=== PATIENT | male | born 1945 | race Caucasian/White ===

== ENCOUNTER → 2018-02-05 | Outpatient (REF) | payer MEDICARE, BC ==
[2018-02-05 19:16] LABS: CHOLESTEROL LEVEL 147 MG/DL (<200); CHOLESTEROL RISK RATIO 5.068 (<5); FERRITIN 135 NG/ML (26-388); HDL CHOLESTEROL 29 MG/DL (>40); IRON (FE) 73 UG/DL (65-175); LDL CHOLESTEROL 50 MG/DL (<100); NON-HDL-C 118 MG/DL; PERCENT SATURATION 30.2 % (19.7-50.0); TOTAL IRON BINDING CAPACITY 242 UG/DL (250-450); TRIGLYCERIDES LEVEL 338 MG/DL (<150)
== END ==
LOC: M LAB REF 17:46
DX: N18.3 Chronic kidney disease, stage 3 (moderate) (principal); E11.22 Type 2 diabetes mellitus with diabetic chronic kidney disease
CPT/HCPCS: 83550

== ENCOUNTER → 2019-02-27 | Outpatient (REF) | payer MEDICARE, BC | LOC: M SFHCLERA 18:13 | PROVIDERS: ATTEND Nurse Practitioner Family | DX: J00 Acute nasopharyngitis [common cold] (principal) ==

== ENCOUNTER → 2020-09-21 | Outpatient (CLI) | payer MEDICARE, BC ==
[2020-09-21 14:12] LABS: FREE T4 0.89 NG/DL (0.76-1.46); VITAMIN B12 LEVEL 1180 PG/ML
[2020-09-21 14:32] LABS: FOLATE > 24.0 NG/ML
== END ==
LOC: M PLALAB 10:12
PROVIDERS: ATTEND Psychiatry & Neurology Neurology
DX: E07.9 Disorder of thyroid, unspecified (principal); E53.8 Deficiency of other specified B group vitamins

== ENCOUNTER → 2020-12-01 | Outpatient (REF) | payer MEDICARE, BC | LOC: M LAB REF 13:04 | PROVIDERS: ATTEND Nurse Practitioner Family | DX: E83.42 Hypomagnesemia (principal) ==

== ENCOUNTER → 2020-12-29 | Outpatient (CLI) | payer MEDICARE, BC | LOC: M PLALAB 14:54 | PROVIDERS: ATTEND Internal Medicine Cardiovascular Disease | DX: I49.3 Ventricular premature depolarization (principal); Z53.8 Procedure and treatment not carried out for other reasons ==

== ENCOUNTER → 2021-01-10 | Outpatient (REF) | payer MEDICARE, BC | LOC: M LAB REF 13:13 | PROVIDERS: ATTEND Internal Medicine Cardiovascular Disease | DX: I49.3 Ventricular premature depolarization (principal) ==

== ENCOUNTER → 2021-01-17 | Outpatient (CLI) | payer MEDICARE, BC | LOC: M PLALAB 08:13 | PROVIDERS: ATTEND Nurse Practitioner Family | DX: E11.65 Type 2 diabetes mellitus with hyperglycemia (principal) ==

== ENCOUNTER → 2021-03-08 | Outpatient (REF) | payer MEDICARE, BC | LOC: M LAB REF 17:11 | PROVIDERS: ATTEND Nurse Practitioner Family | DX: E83.42 Hypomagnesemia (principal) ==

== ENCOUNTER → 2021-06-14 | Outpatient (REF) | payer MEDICARE, BC | LOC: M LAB REF 16:40 | PROVIDERS: ATTEND Nurse Practitioner Family | DX: E83.42 Hypomagnesemia (principal) ==

== ENCOUNTER → 2022-08-30 | Outpatient (CLI) | payer MEDICARE, BC ==
[2022-08-30 17:26] LABS: FREE T4 0.93 NG/DL (0.89-1.76); THYROID STIMULATING HORMONE 2.624 uIU/ML (0.55-4.78)
== END ==
LOC: M WUC 11:21
PROVIDERS: ATTEND Nurse Practitioner Family
DX: R63.4 Abnormal weight loss (principal)

== ENCOUNTER 2023-01-17 10:42 | Inpatient (IN) | payer MEDICARE, BC ==
[2023-01-17] VITALS (19 sets, daily range): BP systolic 123–220; BP diastolic 58–92; TEMP 96.9–98; O2SAT 95–99
[~2023-01-17] VITALS: Ht 180.3 cm; Wt 80.0 kg
[2023-01-17 11:54] LABS: BASO # 0.1 10^3/uL (0.0-0.2); BASO % 0.5 % (0.0-1.0); EOS # 0.2 10^3/uL (0.0-0.5); HEMATOCRIT 42.5 % (42.0-52.0); LYMPH # 1.3 10^3/uL (1.5-5.0); LYMPH % 13.9 % (24.0-44.0); MEAN CORPUSCULAR HEMOGLOBIN 31.2 pg (27.0-33.0); MEAN CORPUSCULAR HGB CONC 32.9 g/dl (32.0-36.5); MEAN CORPUSCULAR VOLUME 94.7 fl (80.0-96.0); MONO # 0.7 10^3/uL (0.0-0.8); MONO % 7.6 % (2.0-8.0); NEUTROPHILS % 74.9 % (36.0-66.0); PLATELET COUNT, AUTOMATED 215 10^3/uL (150-450); RED BLOOD COUNT 4.49 10^6/uL (4.30-6.10); WHITE BLOOD COUNT 9.3 10^3/uL (4.0-10.0)
[2023-01-17 12:09] LABS: INR 0.95; PROTHROMBIN TIME 12.4 SECONDS (12.5-14.5)
[2023-01-17 12:10] LABS: PARTIAL THROMBOPLASTIN TIME 25.5 SECONDS (24.8-34.2)
[2023-01-17] MEDS ORDERED: LABETALOL 100MG/20ML VIAL As Ordered ONE (12:18)
[2023-01-17 12:21] LABS: CK-MB VALUE MASS < 1.0 NG/ML (<3.6)
[2023-01-17] MEDS: LABETALOL 100MG/20ML VIAL IV PRN ×2 (12:22→12:34)
[2023-01-17] MEDS ORDERED: TENECTEPLASE 50 MG KIT (TNKase) IVP ONE (12:25)
[2023-01-17 12:28] LABS: CPK CREATINE PHOSPHOKINASE 109 U/L (46-171); MB/CK RELATIVE INDEX 0.91 (< OR =4)
[2023-01-17] MEDS ORDERED: MED REC IN PROGRESS XX SCH (12:35)
[2023-01-17] MEDS ORDERED: niCARdipine IV 40 MG in IV 1 EA IV SCH ×2 (13:10→18:41)
[2023-01-17] MEDS ORDERED: LANTINJ4 SC (13:21)
[2023-01-17] MEDS ORDERED: PIOG1TAB36 PO (13:25)
[2023-01-17] MEDS ORDERED: GLUCOSE 4GM CHEW TABLET PO PRN (13:25)
[2023-01-17] MEDS ORDERED: ALOG12.5 PO (13:25)
[2023-01-17] MEDS ORDERED: GLUCAGON INJ 1MG VIAL SC PRN (13:25)
[2023-01-17] MEDS ORDERED: DEXTROSE 50% 50ML SYRINGE IV PRN (13:25)
[2023-01-17] MEDS ORDERED: GLIP10TA PO (13:26)
[2023-01-17] MEDS ORDERED: PANT40TA29 PO (13:27)
[2023-01-17] MEDS ORDERED: ROCA0.5C PO (13:29)
[2023-01-17] MEDS ORDERED: ATOR80TA59 PO (13:29)
[2023-01-17] MEDS ORDERED: HYDR12.55 PO (13:29)
[2023-01-17] MEDS ORDERED: [UNRECOGNIZED DRUG - CODE] IC (13:31)
[2023-01-17] MEDS ORDERED: areds PO (13:32)
[2023-01-17] MEDS ORDERED: ASPI81TA26 PO (13:33)
[2023-01-17] MEDS ORDERED: MAGNESIUM OXIDE (13:38)
[2023-01-17] MEDS ORDERED: PRES10CA2 PO (13:54)
[2023-01-17] MEDS ORDERED: MAGN400T2 PO (13:54)
[2023-01-17] MEDS ORDERED: SODIUM CHLORIDE 0.9% INJ 10 ML SYR IV ONE ×2 (14:00)
[2023-01-17] MEDS ORDERED: LABETALOL 100MG/20ML VIAL IV STA (16:35)
[2023-01-17] MEDS: INSULIN LISPRO (NovoLOG) PER UNIT SC SCH (18:00)
[2023-01-18] VITALS (20 sets, daily range): BP systolic 137–216; BP diastolic 66–106; TEMP 96.9–98.1; O2SAT 95–98
[2023-01-18 05:37] LABS: CALCIUM LEVEL 9.4 MG/DL (8.3-10.6); CREATININE FOR GFR 2.61 MG/DL (0.70-1.30); GLOMERULAR FILTRATION RATE 25.6 (>42); POTASSIUM SERUM 3.7 MMOL/L (3.5-5.1)
[2023-01-18] MEDS: INSULIN LISPRO (NovoLOG) PER UNIT SC SCH ×4 (06:00→17:11)
[2023-01-18] MEDS ORDERED: PANTOPRAZOLE 40MG TAB (PROTONIX) PO SCH (09:00)
[2023-01-18] MEDS: ATORVASTATIN 20 MG TAB PO SCH (11:03)
[2023-01-18] MEDS ORDERED: ASPIRIN 81MG ENTERIC TABLET PO SCH (14:55)
[2023-01-18] MEDS: amLODIPine 5 MG TAB PO SCH (15:45)
[2023-01-18] MEDS: CLOPIDOGREL 75 MG TAB PO SCH (15:46)
[2023-01-18] MEDS: PANTOPRAZOLE 40MG VIAL IV SCH (15:46)
[2023-01-18] MEDS: ASPIRIN 81MG CHEW TABLET PO SCH (15:46)
[2023-01-18] MEDS: oxyBUTYnin 5 MG TAB PO SCH ×2 (17:07→20:10)
[2023-01-18] MEDS ORDERED: amLODIPine 5 MG TAB PO SCH (21:00)
[2023-01-19] VITALS (9 sets, daily range): BP systolic 123–148; BP diastolic 65–96; TEMP 97.6–98.6; O2SAT 96–98
[2023-01-19] MEDS: INSULIN LISPRO (NovoLOG) PER UNIT SC SCH ×4 (00:16→17:10)
[2023-01-19 05:11] LABS: HEMATOCRIT 42.6 % (42.0-52.0); HEMOGLOBIN 14.3 g/dl (13.5-17.5); MEAN CORPUSCULAR HGB CONC 33.6 g/dl (32.0-36.5); MEAN CORPUSCULAR VOLUME 92.2 fl (80.0-96.0); PLATELET COUNT, AUTOMATED 238 10^3/uL (150-450); RED BLOOD COUNT 4.62 10^6/uL (4.30-6.10); WHITE BLOOD COUNT 14.4 10^3/uL (4.0-10.0)
[2023-01-19 05:52] LABS: CALCIUM LEVEL 9.7 MG/DL (8.3-10.6); CREATININE FOR GFR 2.66 MG/DL (0.70-1.30); MAGNESIUM LEVEL 1.7 MG/DL (1.8-2.4)
[2023-01-19] MEDS: ASPIRIN 81MG CHEW TABLET PO SCH (09:18)
[2023-01-19] MEDS: CLOPIDOGREL 75 MG TAB PO SCH (09:18)
[2023-01-19] MEDS: HEPARIN SOD (PORCINE) 5000UNITS/ML 1ML VIAL/SYRINGE SQ SCH ×2 (09:18→21:03)
[2023-01-19] MEDS: PANTOPRAZOLE 40MG VIAL IV SCH (09:18)
[2023-01-19] MEDS: oxyBUTYnin 5 MG TAB PO SCH ×2 (09:19→21:04)
[2023-01-19] MEDS: amLODIPine 5 MG TAB PO SCH (09:19)
[2023-01-19] MEDS: ATORVASTATIN 20 MG TAB PO SCH (09:19)
[2023-01-19] MEDS ORDERED: LEVEMIR (INSULIN DETEMIR) 1 UNITS/0.01ML SC SCH (13:00)
[2023-01-19] MEDS ORDERED: INSULIN LISPRO (NovoLOG) PER UNIT SC ONE (14:00)
[2023-01-20] VITALS (7 sets, daily range): BP systolic 113–154; BP diastolic 62–78; TEMP 97.7–98.8; O2SAT 94–98
[2023-01-20] MEDS: INSULIN LISPRO (NovoLOG) PER UNIT SC SCH ×5 (00:34→17:26)
[2023-01-20] MEDS ORDERED: LevoFLOXacin 750 MG TABLET PO SCH (06:00)
[2023-01-20] MEDS: amLODIPine 5 MG TAB PO SCH (09:00)
[2023-01-20] MEDS: HEPARIN SOD (PORCINE) 5000UNITS/ML 1ML VIAL/SYRINGE SQ SCH ×2 (09:01→20:40)
[2023-01-20] MEDS: PANTOPRAZOLE 40MG VIAL IV SCH (09:01)
[2023-01-20] MEDS: ASPIRIN 81MG CHEW TABLET PO SCH (09:02)
[2023-01-20] MEDS: ATORVASTATIN 20 MG TAB PO SCH (09:02)
[2023-01-20] MEDS: oxyBUTYnin 5 MG TAB PO SCH ×2 (09:02→20:40)
[2023-01-20] MEDS: CLOPIDOGREL 75 MG TAB PO SCH (09:02)
[2023-01-20 09:45] LABS: BASO # 0.1 10^3/uL (0.0-0.2); BASO % 0.6 % (0.0-1.0); EOS # 0.2 10^3/uL (0.0-0.5); EOS % 1.2 % (0.0-3.0); HEMATOCRIT 43.9 % (42.0-52.0); HEMOGLOBIN 14.5 g/dl (13.5-17.5); LYMPH # 1.9 10^3/uL (1.5-5.0); LYMPH % 14.2 % (24.0-44.0); MONO # 1.4 10^3/uL (0.0-0.8); MONO % 10.5 % (2.0-8.0); NEUTROPHILS # 9.7 10^3/uL (1.5-8.5); NEUTROPHILS % 72.6 % (36.0-66.0); PLATELET COUNT, AUTOMATED 228 10^3/uL (150-450); RED BLOOD COUNT 4.67 10^6/uL (4.30-6.10); WHITE BLOOD COUNT 13.4 10^3/uL (4.0-10.0)
[2023-01-20 09:51] LABS: ERYTHROCYTE SEDIMENTATION RATE 35 mm/hr (0-20)
[2023-01-20 10:08] LABS: C REACTIVE PROTEIN QUANTITATIV 1.3 MG/DL (<1.0)
[2023-01-20 10:09] LABS: CALCIUM LEVEL 9.6 MG/DL (8.3-10.6); CREATININE FOR GFR 2.98 MG/DL (0.70-1.30); GLOMERULAR FILTRATION RATE 21.9 (>42); POTASSIUM SERUM 3.7 MMOL/L (3.5-5.1)
[2023-01-20 10:16] LABS: PROCALCITONIN 0.24 ng/ml
[2023-01-20] MEDS ORDERED: NS 1,000 ML IV ONE (11:20)
[2023-01-20] MEDS ORDERED: NS 1,000 ML IV SCH (13:00)
[2023-01-20] MEDS ORDERED: CALCIUM GLUCONATE 1,000 MG in D5W MINI-BAG PLUS 100 ML IV ONE (13:25)
[2023-01-20 13:30] LABS: IONIZED CALCIUM 4.9 MG/DL (4.5-5.3)
[2023-01-20 14:07] LABS: MAGNESIUM LEVEL 1.8 MG/DL (1.8-2.4); POTASSIUM SERUM 3.7 MMOL/L (3.5-5.1)
[2023-01-20] MEDS ORDERED: MAG SULF 1GM/100ML (MAG RUN) 1 GM in IV 1 EA IV ONE (15:00)
[2023-01-20] MEDS ORDERED: POTASSIUM CHLORIDE 10MEQ SR TABLET PO ONE (16:00)
[2023-01-20 18:33] LABS: CALCIUM LEVEL 9.2 MG/DL (8.3-10.6); CREATININE FOR GFR 2.88 MG/DL (0.70-1.30); GLOMERULAR FILTRATION RATE 22.8 (>42); POTASSIUM SERUM 4.2 MMOL/L (3.5-5.1)
[2023-01-20] MEDS ORDERED: INSULIN LISPRO (NovoLOG) PER UNIT SC SCH (21:00)
[2023-01-20] MEDS ORDERED: LEVEMIR (INSULIN DETEMIR) 1 UNITS/0.01ML SC SCH (21:00)
[2023-01-21 00:35] LABS: CALCIUM LEVEL 9.3 MG/DL (8.3-10.6); CREATININE FOR GFR 2.8 MG/DL (0.70-1.30); GLOMERULAR FILTRATION RATE 23.6 (>42); POTASSIUM SERUM 4.1 MMOL/L (3.5-5.1)
[2023-01-21 02:00] VITALS: BP 135/73; TEMP 98.6; O2SAT 97
[2023-01-21 04:50] VITALS: BP 135/79; TEMP 98.1; O2SAT 98
[2023-01-21 06:15] LABS: HEMOGLOBIN 13.9 g/dl (13.5-17.5); MEAN CORPUSCULAR HEMOGLOBIN 30.8 pg (27.0-33.0); MEAN CORPUSCULAR HGB CONC 32.3 g/dl (32.0-36.5); MEAN CORPUSCULAR VOLUME 95.1 fl (80.0-96.0); PLATELET COUNT, AUTOMATED 215 10^3/uL (150-450); RED BLOOD COUNT 4.52 10^6/uL (4.30-6.10); WHITE BLOOD COUNT 12.1 10^3/uL (4.0-10.0)
[2023-01-21 06:41] LABS: CALCIUM LEVEL 9.4 MG/DL (8.3-10.6); CHOLESTEROL RISK RATIO 5.21 (<5); CREATININE FOR GFR 2.79 MG/DL (0.70-1.30); GLOMERULAR FILTRATION RATE 23.7 (>42); HDL CHOLESTEROL 27.4 MG/DL (>40); LDL CHOLESTEROL 77.2 MG/DL (<100); NON-HDL-C 115.6 MG/DL
[2023-01-21] MEDS ORDERED: ISOSORBIDE DIN (ISORDIL) 10MG TAB PO SCH (09:00)
[2023-01-21] MEDS ORDERED: POTASSIUM CHLORIDE 10% LIQ 20MEQ/15ML UDC PO SCH (09:00)
[2023-01-21] MEDS ORDERED: TAMSULOSIN 0.4 MG CAP PO SCH (09:00)
[2023-01-21] MEDS: PANTOPRAZOLE 40MG VIAL IV SCH (09:04)
[2023-01-21] MEDS: INSULIN LISPRO (NovoLOG) PER UNIT SC SCH ×2 (09:05)
[2023-01-21] MEDS: CLOPIDOGREL 75 MG TAB PO SCH (09:05)
[2023-01-21] MEDS: oxyBUTYnin 5 MG TAB PO SCH (09:06)
[2023-01-21] MEDS: ATORVASTATIN 20 MG TAB PO SCH (09:06)
[2023-01-21] MEDS: ASPIRIN 81MG CHEW TABLET PO SCH (09:07)
[2023-01-21] MEDS: HEPARIN SOD (PORCINE) 5000UNITS/ML 1ML VIAL/SYRINGE SQ SCH (09:09)
[2023-01-21 09:47] VITALS: BP 164/88; TEMP 97.9; O2SAT 98
[2023-01-21] MEDS ORDERED: FLOM0.4C39 PO (10:42)
[2023-01-21] MEDS ORDERED: BACI1CAP PO (10:42)
[2023-01-21] MEDS ORDERED: POTA20EL PO (10:42)
[2023-01-21] MEDS ORDERED: CLOP75TA2 PO (10:42)
[2023-01-21] MEDS ORDERED: ISOS10TA3 PO (10:42)
[2023-01-21] MEDS ORDERED: OXYB5TAB10 PO (10:42)
[2023-01-21] MEDS ORDERED: LEVO1TAB40 PO (10:42)
[2023-01-21] MEDS ORDERED: VARIBAR PUDDING 40% w/v 230ML TUBE As Ordered ONE (10:47)
[2023-01-21] MEDS ORDERED: BARIUM SULFATE 700 MG TABLET (E-Z-DISK) As Ordered ONE (10:47)
[2023-01-21] MEDS ORDERED: E-Z-PAQUE 96% w/w SUSP 176GM BTL As Ordered ONE (10:47)
[2023-01-21] MEDS ORDERED: VARIBAR NECTAR 40% w/v 240ML SUSP BTL As Ordered ONE (10:47)
== END 2023-01-21 12:32 | DRG 62 ==
LOC: M ED 10:42 → EDBD 10:42 → EDBEDREQSVC 12:29 → M ED INP 12:59 → ENRESERV 13:54 → M ICU 14:49 → M MSPAV 01-19 15:47
PROVIDERS: ADMIT Internal Medicine Pulmonary Disease; ATTEND General Practice
PROC: 3E03317 Introduction of Other Thrombolytic into Peripheral Vein, Percutaneous Approach (ICD-10-PCS; principal; 2023-01-17)
PROC: B246ZZZ Ultrasonography of Right and Left Heart (ICD-10-PCS; 2023-01-17)
DX: I63.9 Cerebral infarction, unspecified (principal); N18.4 Chronic kidney disease, stage 4 (severe); I16.1 Hypertensive emergency; G81.91 Hemiplegia, unspecified affecting right dominant side; I50.32 Chronic diastolic (congestive) heart failure; I13.0 Hypertensive heart and chronic kidney disease with heart failure and stage 1 through stage 4 chronic kidney disease, or unspecified chronic kidney disease; R00.8 Other abnormalities of heart beat; E11.22 Type 2 diabetes mellitus with diabetic chronic kidney disease; R33.9 Retention of urine, unspecified; E78.5 Hyperlipidemia, unspecified; K21.9 Gastro-esophageal reflux disease without esophagitis; R13.12 Dysphagia, oropharyngeal phase; R29.810 Facial weakness; Z88.0 Allergy status to penicillin; Z79.4 Long term (current) use of insulin; Z79.899 Other long term (current) drug therapy; Z90.49 Acquired absence of other specified parts of digestive tract

== ENCOUNTER 2023-01-21 11:15 | Inpatient (IN) | payer MEDICARE, BC ==
[~2023-01-21] VITALS: Ht 180.3 cm; Wt 78.5 kg
[~2023-01-21 11:15] MED LIST: ALOG12.5 PO; ASPI81TA26 PO; ATOR80TA59 PO; BACI1CAP PO; CLOP75TA2 PO; FLOM0.4C39 PO; GLIP10TA PO; HYDR12.55 PO; ISOS10TA3 PO; LANTINJ4 SC; LEVO1TAB40 PO; MAGN400T2 PO; MAGNESIUM OXIDE; OXYB5TAB11 PO; PANT40TA29 PO; PIOG1TAB36 PO; POTA20EL PO; PRES10CA2 PO; ROCA0.5C PO; [UNRECOGNIZED DRUG - CODE] IC; areds PO
[2023-01-21] MEDS ORDERED: ACETAMINOPHEN 650MG SUPP PR PRN (11:55)
[2023-01-21] MEDS ORDERED: ONDANSETRON 4MG TAB PO PRN (11:55)
[2023-01-21] MEDS ORDERED: MULTIVITAMINS/MINERALS THERAP 1 TAB PO ONE (12:00)
[2023-01-21] MEDS ORDERED: GLUCOSE 4GM CHEW TABLET PO PRN (12:00)
[2023-01-21] MEDS: INSULIN LISPRO (NovoLOG) PER UNIT SC SCH ×3 (12:00→21:02)
[2023-01-21] MEDS ORDERED: GLUCAGON INJ 1MG VIAL SC PRN (12:00)
[2023-01-21] MEDS ORDERED: DEXTROSE 50% 50ML SYRINGE IV PRN (12:00)
[2023-01-21 12:50] VITALS: BP 172/80; TEMP 97.8; O2SAT 98
[2023-01-21 14:00] VITALS: BP 129/79; TEMP 97.2; O2SAT 97
[2023-01-21] MEDS ORDERED: BACLOFEN 5MG PER 1/2 TABLET GT PRN (15:45)
[2023-01-21 20:00] VITALS: BP 159/72; TEMP 97.8; O2SAT 98
[2023-01-21] MEDS ORDERED: oxyBUTYnin 5 MG TAB PO SCH (21:00)
[2023-01-21] MEDS: LEVEMIR (INSULIN DETEMIR) 1 UNITS/0.01ML SC SCH (21:02)
[2023-01-21] MEDS: SENNA 8.6 MG TAB (SENOKOT) PO SCH (21:03)
[2023-01-21] MEDS: HEPARIN SOD (PORCINE) 5000UNITS/ML 1ML VIAL/SYRINGE SC SCH (21:03)
[2023-01-21] MEDS: POTASSIUM CHLORIDE 10% LIQ 20MEQ/15ML UDC PO SCH (21:03)
[2023-01-21] MEDS: ISOSORBIDE DIN (ISORDIL) 10MG TAB PO SCH (21:04)
[2023-01-22 05:09] VITALS: BP_SYST 140; BP_SYST 168; BP_DIAS 72; BP_DIAS 80; TEMP 97.2; O2SAT 97
[2023-01-22] MEDS: LIDOCAINE 2% 5ML JELLY UROJET TOP PRN (06:26)
[2023-01-22 07:03] LABS: BASO # 0.1 10^3/uL (0.0-0.2); BASO % 0.6 % (0.0-1.0); EOS # 0.2 10^3/uL (0.0-0.5); EOS % 1.8 % (0.0-3.0); HEMOGLOBIN 13.3 g/dl (13.5-17.5); LYMPH # 1.5 10^3/uL (1.5-5.0); LYMPH % 14.1 % (24.0-44.0); MEAN CORPUSCULAR HEMOGLOBIN 30.6 pg (27.0-33.0); MEAN CORPUSCULAR HGB CONC 31.7 g/dl (32.0-36.5); MEAN CORPUSCULAR VOLUME 96.6 fl (80.0-96.0); MONO # 0.9 10^3/uL (0.0-0.8); MONO % 8.5 % (2.0-8.0); NEUTROPHILS # 7.6 10^3/uL (1.5-8.5); NEUTROPHILS % 73.7 % (36.0-66.0); PLATELET COUNT, AUTOMATED 200 10^3/uL (150-450); RED BLOOD COUNT 4.35 10^6/uL (4.30-6.10); WHITE BLOOD COUNT 10.3 10^3/uL (4.0-10.0)
[2023-01-22 07:32] LABS: CALCIUM LEVEL 9.3 MG/DL (8.3-10.6); CREATININE FOR GFR 2.72 MG/DL (0.70-1.30); GLOMERULAR FILTRATION RATE 24.4 (>42); POTASSIUM SERUM 4.7 MMOL/L (3.5-5.1)
[2023-01-22] MEDS ORDERED: TAMSULOSIN 0.4 MG CAP PO SCH (09:00)
[2023-01-22] MEDS: LACTOBACILLUS ACIDOPHILUS CAP (BACID) PO SCH (09:34)
[2023-01-22] MEDS: ASPIRIN 81MG ENTERIC TABLET PO SCH (09:34)
[2023-01-22] MEDS: ATORVASTATIN 20 MG TAB PO SCH (09:34)
[2023-01-22] MEDS: CLOPIDOGREL 75 MG TAB PO SCH (09:34)
[2023-01-22] MEDS: POTASSIUM CHLORIDE 10% LIQ 20MEQ/15ML UDC PO SCH ×2 (09:34→22:11)
[2023-01-22] MEDS: PANTOPRAZOLE 40MG TAB (PROTONIX) PO SCH (09:34)
[2023-01-22] MEDS: MAGNESIUM OXIDE 400MG TAB (MAG-OX) PO SCH (09:35)
[2023-01-22] MEDS: LevoFLOXacin 750 MG TABLET PO SCH (09:35)
[2023-01-22] MEDS: ISOSORBIDE DIN (ISORDIL) 10MG TAB PO SCH ×2 (09:35→22:10)
[2023-01-22] MEDS: INSULIN LISPRO (NovoLOG) PER UNIT SC SCH ×4 (09:35→21:00)
[2023-01-22] MEDS: HEPARIN SOD (PORCINE) 5000UNITS/ML 1ML VIAL/SYRINGE SC SCH ×2 (09:36→22:13)
[2023-01-22 14:00] VITALS: BP 140/84; TEMP 97.4; O2SAT 99
[2023-01-22] MEDS ORDERED: TAMSULOSIN 0.4 MG CAP PO ONE (21:00)
[2023-01-22 22:05] VITALS: BP 157/77; TEMP 97.6; O2SAT 100
[2023-01-22] MEDS: SENNA 8.6 MG TAB (SENOKOT) PO SCH (22:10)
[2023-01-22] MEDS: LEVEMIR (INSULIN DETEMIR) 1 UNITS/0.01ML SC SCH (22:11)
[2023-01-23] VITALS (7 sets, daily range): BP systolic 135–187; BP diastolic 74–99; TEMP 97.2–97.6; O2SAT 98–100
[2023-01-23] MEDS: CLOPIDOGREL 75 MG TAB PO SCH (09:13)
[2023-01-23] MEDS: LACTOBACILLUS ACIDOPHILUS CAP (BACID) PO SCH (09:13)
[2023-01-23] MEDS: MAGNESIUM OXIDE 400MG TAB (MAG-OX) PO SCH (09:13)
[2023-01-23] MEDS: PANTOPRAZOLE 40MG TAB (PROTONIX) PO SCH (09:13)
[2023-01-23] MEDS: ASPIRIN 81MG ENTERIC TABLET PO SCH (09:13)
[2023-01-23] MEDS: POTASSIUM CHLORIDE 10% LIQ 20MEQ/15ML UDC PO SCH ×2 (09:13→20:59)
[2023-01-23] MEDS: ISOSORBIDE DIN (ISORDIL) 10MG TAB PO SCH (09:14)
[2023-01-23] MEDS: ATORVASTATIN 20 MG TAB PO SCH (09:14)
[2023-01-23] MEDS: HEPARIN SOD (PORCINE) 5000UNITS/ML 1ML VIAL/SYRINGE SC SCH ×2 (09:14→21:00)
[2023-01-23] MEDS: INSULIN LISPRO (NovoLOG) PER UNIT SC SCH ×5 (09:16→21:01)
[2023-01-23] MEDS ORDERED: INSULIN LISPRO (NovoLOG) PER UNIT SC SCH ×2 (12:00→21:00)
[2023-01-23] MEDS ORDERED: SODIUM CHLORIDE 0.9% 1000ML IV ONE (13:05)
[2023-01-23] MEDS: NS 1,000 ML IV SCH (14:00)
[2023-01-23 15:57] LABS: COLLAGEN EPINEPHRINE 217 SECONDS (74-162)
[2023-01-23 17:26] LABS: COLLAGEN EPINEPHRINE 96 SECONDS (74-162)
[2023-01-23] MEDS: LEVEMIR (INSULIN DETEMIR) 1 UNITS/0.01ML SC SCH (21:00)
[2023-01-23] MEDS ORDERED: TAMSULOSIN 0.4 MG CAP PO SCH (21:00)
[2023-01-23] MEDS: SENNA 8.6 MG TAB (SENOKOT) PO SCH (21:00)
[2023-01-23] MEDS ORDERED: LEVEMIR (INSULIN DETEMIR) 1 UNITS/0.01ML SC SCH (21:00)
[2023-01-24] MEDS: NS 1,000 ML IV SCH ×3 (00:49→22:10)
[2023-01-24 06:00] VITALS: BP 130/60; TEMP 97.3; O2SAT 100
[2023-01-24] MEDS ORDERED: NS 1,000 ML IV ONE (07:05)
[2023-01-24 07:29] LABS: IONIZED CALCIUM 4.9 MG/DL (4.5-5.3)
[2023-01-24] MEDS: INSULIN LISPRO (NovoLOG) PER UNIT SC SCH ×7 (07:30→22:10)
[2023-01-24 07:35] LABS: BASO # 0.1 10^3/uL (0.0-0.2); BASO % 0.7 % (0.0-1.0); EOS # 0.3 10^3/uL (0.0-0.5); EOS % 3.7 % (0.0-3.0); HEMATOCRIT 38.8 % (42.0-52.0); HEMOGLOBIN 12.6 g/dl (13.5-17.5); LYMPH # 1.4 10^3/uL (1.5-5.0); LYMPH % 15.8 % (24.0-44.0); MEAN CORPUSCULAR HEMOGLOBIN 31.1 pg (27.0-33.0); MEAN CORPUSCULAR HGB CONC 32.5 g/dl (32.0-36.5); MEAN CORPUSCULAR VOLUME 95.8 fl (80.0-96.0); MONO # 0.7 10^3/uL (0.0-0.8); MONO % 7.6 % (2.0-8.0); NEUTROPHILS # 6.1 10^3/uL (1.5-8.5); NEUTROPHILS % 70.8 % (36.0-66.0); PLATELET COUNT, AUTOMATED 209 10^3/uL (150-450); RED BLOOD COUNT 4.05 10^6/uL (4.30-6.10); WHITE BLOOD COUNT 8.7 10^3/uL (4.0-10.0)
[2023-01-24 08:01] LABS: ALBUMIN 3.2 G/DL (3.2-5.2); BILIRUBIN,TOTAL 0.4 MG/DL (0.3-1.2); CALCIUM LEVEL 9.1 MG/DL (8.3-10.6); CREATININE FOR GFR 2.45 MG/DL (0.70-1.30); GLOMERULAR FILTRATION RATE 27.5 (>42); MAGNESIUM LEVEL 1.6 MG/DL (1.8-2.4); POTASSIUM SERUM 4.9 MMOL/L (3.5-5.1); TOTAL PROTEIN 5.9 G/DL (5.7-8.2)
[2023-01-24] MEDS: CLOPIDOGREL 75 MG TAB PO SCH (08:58)
[2023-01-24] MEDS: POTASSIUM CHLORIDE 10% LIQ 20MEQ/15ML UDC PO SCH ×2 (08:58→22:08)
[2023-01-24] MEDS: LevoFLOXacin 750 MG TABLET PO SCH (08:58)
[2023-01-24] MEDS: LACTOBACILLUS ACIDOPHILUS CAP (BACID) PO SCH (08:58)
[2023-01-24] MEDS: ATORVASTATIN 20 MG TAB PO SCH (08:58)
[2023-01-24] MEDS: PANTOPRAZOLE 40MG TAB (PROTONIX) PO SCH (08:59)
[2023-01-24] MEDS: MAGNESIUM OXIDE 400MG TAB (MAG-OX) PO SCH (08:59)
[2023-01-24] MEDS: ASPIRIN 81MG ENTERIC TABLET PO SCH (08:59)
[2023-01-24] MEDS: HEPARIN SOD (PORCINE) 5000UNITS/ML 1ML VIAL/SYRINGE SC SCH ×2 (09:00→22:09)
[2023-01-24] MEDS ORDERED: LIDOCAINE 2% 5ML JELLY UROJET TOP PRN (10:25)
[2023-01-24] MEDS: BETHANECHOL 10 MG TAB PO SCH (12:44)
[2023-01-24 14:00] VITALS: BP 138/72; TEMP 98.1; O2SAT 99
[2023-01-24 19:46] VITALS: BP 148/110; TEMP 97.6; O2SAT 98
[2023-01-24 22:00] VITALS: BP 140/90
[2023-01-24] MEDS: SENNA 8.6 MG TAB (SENOKOT) PO SCH (22:08)
[2023-01-24] MEDS: LEVEMIR (INSULIN DETEMIR) 1 UNITS/0.01ML SC SCH ×2 (22:09→22:11)
[2023-01-25 05:25] VITALS: BP 125/82; TEMP 97.9; O2SAT 96
[2023-01-25] MEDS: LIDOCAINE 2% 5ML JELLY UROJET TOP PRN ×3 (05:36→21:00)
[2023-01-25] MEDS ORDERED: NS 1,000 ML IV ONE ×2 (06:00→10:30)
[2023-01-25] MEDS: INSULIN LISPRO (NovoLOG) PER UNIT SC SCH ×7 (07:30→20:13)
[2023-01-25] MEDS: POTASSIUM CHLORIDE 10% LIQ 20MEQ/15ML UDC PO SCH (09:00)
[2023-01-25] MEDS: HEPARIN SOD (PORCINE) 5000UNITS/ML 1ML VIAL/SYRINGE SC SCH ×2 (09:34→20:14)
[2023-01-25] MEDS: MAGNESIUM OXIDE 400MG TAB (MAG-OX) PO SCH (09:37)
[2023-01-25] MEDS: PANTOPRAZOLE 40MG TAB (PROTONIX) PO SCH (09:37)
[2023-01-25] MEDS: ATORVASTATIN 20 MG TAB PO SCH (09:37)
[2023-01-25] MEDS: BETHANECHOL 10 MG TAB PO SCH (09:37)
[2023-01-25] MEDS: ASPIRIN 81MG ENTERIC TABLET PO SCH (09:37)
[2023-01-25] MEDS: LACTOBACILLUS ACIDOPHILUS CAP (BACID) PO SCH (09:37)
[2023-01-25] MEDS: CLOPIDOGREL 75 MG TAB PO SCH (09:37)
[2023-01-25 11:35] VITALS: BP 140/62
[2023-01-25] MEDS: NS 1,000 ML IV SCH ×2 (12:59→16:00)
[2023-01-25 14:00] VITALS: BP 135/75; TEMP 97.5; O2SAT 98
[2023-01-25 19:52] VITALS: BP 158/92; TEMP 98.1; O2SAT 99
[2023-01-25] MEDS: LEVEMIR (INSULIN DETEMIR) 1 UNITS/0.01ML SC SCH ×2 (20:00→20:14)
[2023-01-25] MEDS: SENNA 8.6 MG TAB (SENOKOT) PO SCH (20:14)
[2023-01-26 06:00] VITALS: BP 152/76; TEMP 98.9; O2SAT 99
[2023-01-26] MEDS: INSULIN LISPRO (NovoLOG) PER UNIT SC SCH ×7 (07:30→19:39)
[2023-01-26] MEDS: PANTOPRAZOLE 40MG TAB (PROTONIX) PO SCH (08:08)
[2023-01-26] MEDS: CLOPIDOGREL 75 MG TAB PO SCH (08:08)
[2023-01-26] MEDS: ATORVASTATIN 20 MG TAB PO SCH (08:08)
[2023-01-26] MEDS: ASPIRIN 81MG ENTERIC TABLET PO SCH (08:08)
[2023-01-26] MEDS: HEPARIN SOD (PORCINE) 5000UNITS/ML 1ML VIAL/SYRINGE SC SCH ×2 (08:09→19:37)
[2023-01-26] MEDS: LACTOBACILLUS ACIDOPHILUS CAP (BACID) PO SCH (08:09)
[2023-01-26] MEDS: BETHANECHOL 10 MG TAB PO SCH (08:09)
[2023-01-26] MEDS: MAGNESIUM OXIDE 400MG TAB (MAG-OX) PO SCH (08:09)
[2023-01-26] MEDS: LevoFLOXacin 750 MG TABLET PO SCH (08:14)
[2023-01-26] MEDS: NS 1,000 ML IV SCH ×2 (08:45)
[2023-01-26 14:00] VITALS: BP 160/84; TEMP 97.6; O2SAT 99
[2023-01-26] MEDS: LEVEMIR (INSULIN DETEMIR) 1 UNITS/0.01ML SC SCH ×2 (19:38→19:39)
[2023-01-26] MEDS: SENNA 8.6 MG TAB (SENOKOT) PO SCH (19:38)
[2023-01-26 20:00] VITALS: BP 160/82; TEMP 97.5; O2SAT 99
[2023-01-27 06:00] VITALS: BP 160/66; TEMP 98.2; O2SAT 98
[2023-01-27] MEDS: INSULIN LISPRO (NovoLOG) PER UNIT SC SCH ×7 (07:30→20:46)
[2023-01-27 09:12] LABS: BASO # 0.1 10^3/uL (0.0-0.2); EOS # 0.3 10^3/uL (0.0-0.5); HEMATOCRIT 38.9 % (42.0-52.0); HEMOGLOBIN 12.9 g/dl (13.5-17.5); LYMPH # 1.3 10^3/uL (1.5-5.0); LYMPH % 12.3 % (24.0-44.0); MEAN CORPUSCULAR HEMOGLOBIN 31.9 pg (27.0-33.0); MEAN CORPUSCULAR HGB CONC 33.2 g/dl (32.0-36.5); MONO # 0.7 10^3/uL (0.0-0.8); MONO % 6.5 % (2.0-8.0); NEUTROPHILS # 7.9 10^3/uL (1.5-8.5); NEUTROPHILS % 75.1 % (36.0-66.0); PLATELET COUNT, AUTOMATED 208 10^3/uL (150-450); RED BLOOD COUNT 4.05 10^6/uL (4.30-6.10); WHITE BLOOD COUNT 10.5 10^3/uL (4.0-10.0)
[2023-01-27] MEDS: ASPIRIN 81MG ENTERIC TABLET PO SCH (09:26)
[2023-01-27] MEDS: ATORVASTATIN 20 MG TAB PO SCH (09:26)
[2023-01-27] MEDS: LACTOBACILLUS ACIDOPHILUS CAP (BACID) PO SCH (09:26)
[2023-01-27] MEDS: PANTOPRAZOLE 40MG TAB (PROTONIX) PO SCH (09:26)
[2023-01-27] MEDS: HEPARIN SOD (PORCINE) 5000UNITS/ML 1ML VIAL/SYRINGE SC SCH (09:27)
[2023-01-27] MEDS: CLOPIDOGREL 75 MG TAB PO SCH (09:27)
[2023-01-27] MEDS: BETHANECHOL 10 MG TAB PO SCH (09:27)
[2023-01-27] MEDS: MAGNESIUM OXIDE 400MG TAB (MAG-OX) PO SCH ×2 (09:27→20:47)
[2023-01-27 09:30] LABS: ERYTHROCYTE SEDIMENTATION RATE 19 mm/hr (0-20)
[2023-01-27 09:32] LABS: C REACTIVE PROTEIN QUANTITATIV 0.7 MG/DL (<1.0)
[2023-01-27 09:34] LABS: ALBUMIN 3.1 G/DL (3.2-5.2); BILIRUBIN,TOTAL 0.4 MG/DL (0.3-1.2); CALCIUM LEVEL 8.7 MG/DL (8.3-10.6); CREATININE FOR GFR 2.46 MG/DL (0.70-1.30); GLOMERULAR FILTRATION RATE 27.4 (>42); MAGNESIUM LEVEL 1.4 MG/DL (1.8-2.4); POTASSIUM SERUM 4.6 MMOL/L (3.5-5.1); TOTAL PROTEIN 5.9 G/DL (5.7-8.2)
[2023-01-27 09:39] LABS: PROCALCITONIN 0.14 ng/ml
[2023-01-27 14:00] VITALS: BP 148/82; TEMP 97.6; O2SAT 99
[2023-01-27] MEDS: LEVEMIR (INSULIN DETEMIR) 1 UNITS/0.01ML SC SCH ×2 (19:51→20:46)
[2023-01-27 20:00] VITALS: BP 160/70; TEMP 97.7; O2SAT 99
[2023-01-27] MEDS: SENNA 8.6 MG TAB (SENOKOT) PO SCH (20:46)
[2023-01-27] MEDS: TAMSULOSIN 0.4 MG CAP PO SCH (20:46)
[2023-01-27 21:00] VITALS: BP 154/66
[2023-01-28 06:00] VITALS: BP 132/70; TEMP 97.5; O2SAT 99
[2023-01-28] MEDS: INSULIN LISPRO (NovoLOG) PER UNIT SC SCH ×8 (07:28→20:32)
[2023-01-28] MEDS: ATORVASTATIN 20 MG TAB PO SCH (09:18)
[2023-01-28] MEDS: MAGNESIUM OXIDE 400MG TAB (MAG-OX) PO SCH ×2 (09:18→20:32)
[2023-01-28] MEDS: PANTOPRAZOLE 40MG TAB (PROTONIX) PO SCH (09:18)
[2023-01-28] MEDS: LACTOBACILLUS ACIDOPHILUS CAP (BACID) PO SCH (09:18)
[2023-01-28] MEDS: CLOPIDOGREL 75 MG TAB PO SCH (09:18)
[2023-01-28] MEDS: ASPIRIN 81MG ENTERIC TABLET PO SCH (09:18)
[2023-01-28 10:24] VITALS: BP 144/70; O2SAT 100
[2023-01-28 14:00] VITALS: BP 142/70; TEMP 98; O2SAT 100
[2023-01-28 20:00] VITALS: BP 160/82; TEMP 97.8; O2SAT 99
[2023-01-28] MEDS: LEVEMIR (INSULIN DETEMIR) 1 UNITS/0.01ML SC SCH (20:31)
[2023-01-28] MEDS: TAMSULOSIN 0.4 MG CAP PO SCH (20:32)
[2023-01-28] MEDS: RAMELTEON 8 MG TAB (ROZEREM) PO PRN (20:32)
[2023-01-28] MEDS: SENNA 8.6 MG TAB (SENOKOT) PO SCH (20:32)
[2023-01-29 06:00] VITALS: BP 130/74; TEMP 97.3; O2SAT 98
[2023-01-29] MEDS: INSULIN LISPRO (NovoLOG) PER UNIT SC SCH ×5 (07:30→21:12)
[2023-01-29] MEDS: ASPIRIN 81MG ENTERIC TABLET PO SCH (07:33)
[2023-01-29] MEDS: ATORVASTATIN 20 MG TAB PO SCH (07:34)
[2023-01-29] MEDS: MAGNESIUM OXIDE 400MG TAB (MAG-OX) PO SCH ×2 (07:35→21:14)
[2023-01-29] MEDS: CLOPIDOGREL 75 MG TAB PO SCH (07:35)
[2023-01-29] MEDS: PANTOPRAZOLE 40MG TAB (PROTONIX) PO SCH (07:35)
[2023-01-29] MEDS: LACTOBACILLUS ACIDOPHILUS CAP (BACID) PO SCH (07:35)
[2023-01-29] MEDS: ACETAMINOPHEN TAB 650MG DOSE (2X325MG) PO PRN (10:49)
[2023-01-29] MEDS: SITagliptin 50 MG TAB (JANUVIA) PO SCH (12:11)
[2023-01-29 14:00] VITALS: BP 118/60; TEMP 97.4; O2SAT 99
[2023-01-29 19:34] VITALS: BP 145/74; TEMP 96.2; O2SAT 100
[2023-01-29] MEDS: SENNA 8.6 MG TAB (SENOKOT) PO SCH (21:13)
[2023-01-29] MEDS: TAMSULOSIN 0.4 MG CAP PO SCH (21:13)
[2023-01-29] MEDS: LEVEMIR (INSULIN DETEMIR) 1 UNITS/0.01ML SC SCH (21:13)
[2023-01-29] MEDS: LIDOCAINE 2% 5ML JELLY UROJET TOP PRN (22:31)
[2023-01-30 06:02] VITALS: BP 120/77; TEMP 97.5; O2SAT 98
[2023-01-30] MEDS: INSULIN LISPRO (NovoLOG) PER UNIT SC SCH ×4 (07:03→20:11)
[2023-01-30] MEDS: ATORVASTATIN 20 MG TAB PO SCH (07:19)
[2023-01-30] MEDS: MAGNESIUM OXIDE 400MG TAB (MAG-OX) PO SCH ×2 (07:19→20:09)
[2023-01-30] MEDS: PANTOPRAZOLE 40MG TAB (PROTONIX) PO SCH (07:19)
[2023-01-30] MEDS: LACTOBACILLUS ACIDOPHILUS CAP (BACID) PO SCH (07:19)
[2023-01-30] MEDS: SITagliptin 50 MG TAB (JANUVIA) PO SCH (07:20)
[2023-01-30] MEDS: ASPIRIN 81MG ENTERIC TABLET PO SCH (07:20)
[2023-01-30] MEDS: CLOPIDOGREL 75 MG TAB PO SCH (07:20)
[2023-01-30 14:00] VITALS: BP 150/80; TEMP 97.6; O2SAT 100
[2023-01-30] MEDS: BETHANECHOL 10 MG TAB PO SCH (16:52)
[2023-01-30 19:39] VITALS: BP 146/90; TEMP 97.1; O2SAT 100
[2023-01-30] MEDS: SENNA 8.6 MG TAB (SENOKOT) PO SCH (20:09)
[2023-01-30] MEDS: TAMSULOSIN 0.4 MG CAP PO SCH (20:09)
[2023-01-30] MEDS: LEVEMIR (INSULIN DETEMIR) 1 UNITS/0.01ML SC SCH (20:10)
[2023-01-30] MEDS: RAMELTEON 8 MG TAB (ROZEREM) PO PRN (20:12)
[2023-01-30 21:30] VITALS: BP 136/74; TEMP 97.5; O2SAT 97
[2023-01-30] MEDS: LIDOCAINE 2% 5ML JELLY UROJET TOP PRN (21:59)
[2023-01-31 06:00] VITALS: BP 122/78; TEMP 97.5; O2SAT 95
[2023-01-31] MEDS: LIDOCAINE 2% 5ML JELLY UROJET TOP PRN ×2 (06:43→20:29)
[2023-01-31] MEDS: INSULIN LISPRO (NovoLOG) PER UNIT SC SCH ×4 (07:30→20:11)
[2023-01-31] MEDS ORDERED: PILL CUTTER 1 EACH XX PRN (07:55)
[2023-01-31] MEDS: BETHANECHOL 10 MG TAB PO SCH ×3 (09:48→20:11)
[2023-01-31] MEDS: SITagliptin 50 MG TAB (JANUVIA) PO SCH (09:49)
[2023-01-31] MEDS: CLOPIDOGREL 75 MG TAB PO SCH (09:51)
[2023-01-31] MEDS: PANTOPRAZOLE 40MG TAB (PROTONIX) PO SCH (09:52)
[2023-01-31] MEDS: ATORVASTATIN 20 MG TAB PO SCH (09:52)
[2023-01-31] MEDS: LACTOBACILLUS ACIDOPHILUS CAP (BACID) PO SCH (09:53)
[2023-01-31] MEDS: ASPIRIN 81MG ENTERIC TABLET PO SCH (09:53)
[2023-01-31] MEDS: MAGNESIUM OXIDE 400MG TAB (MAG-OX) PO SCH ×2 (09:54→20:10)
[2023-01-31] MEDS: PIOGLITAZONE 30 MG PO SCH (09:54)
[2023-01-31] MEDS ORDERED: E-Z-PAQUE 96% w/w SUSP 176GM BTL As Ordered ONE (12:15)
[2023-01-31] MEDS ORDERED: BARIUM SULFATE 700 MG TABLET (E-Z-DISK) As Ordered ONE (12:15)
[2023-01-31] MEDS ORDERED: VARIBAR NECTAR 40% w/v 240ML SUSP BTL As Ordered ONE (12:15)
[2023-01-31] MEDS ORDERED: VARIBAR PUDDING 40% w/v 230ML TUBE As Ordered ONE (12:15)
[2023-01-31 14:00] VITALS: BP 165/88; TEMP 96.8; O2SAT 100
[2023-01-31 20:00] VITALS: BP 137/81; TEMP 97.5; O2SAT 98
[2023-01-31] MEDS: TAMSULOSIN 0.4 MG CAP PO SCH (20:10)
[2023-01-31] MEDS: SENNA 8.6 MG TAB (SENOKOT) PO SCH (20:10)
[2023-01-31] MEDS: LEVEMIR (INSULIN DETEMIR) 1 UNITS/0.01ML SC SCH (20:12)
[2023-02-01] MEDS: LIDOCAINE 2% 5ML JELLY UROJET TOP PRN ×3 (05:52→21:51)
[2023-02-01 06:00] VITALS: BP 122/79; TEMP 97.6; O2SAT 98
[2023-02-01] MEDS: CLOPIDOGREL 75 MG TAB PO SCH (08:38)
[2023-02-01] MEDS: ASPIRIN 81MG ENTERIC TABLET PO SCH (08:38)
[2023-02-01] MEDS: PANTOPRAZOLE 40MG TAB (PROTONIX) PO SCH (08:38)
[2023-02-01] MEDS: LACTOBACILLUS ACIDOPHILUS CAP (BACID) PO SCH (08:38)
[2023-02-01] MEDS: SITagliptin 50 MG TAB (JANUVIA) PO SCH (08:38)
[2023-02-01] MEDS: ATORVASTATIN 20 MG TAB PO SCH (08:38)
[2023-02-01] MEDS: BETHANECHOL 10 MG TAB PO SCH ×3 (08:39→21:29)
[2023-02-01] MEDS: PIOGLITAZONE 30 MG PO SCH (08:39)
[2023-02-01] MEDS: MAGNESIUM OXIDE 400MG TAB (MAG-OX) PO SCH ×4 (08:39→21:28)
[2023-02-01] MEDS: INSULIN LISPRO (NovoLOG) PER UNIT SC SCH ×4 (08:40→21:27)
[2023-02-01] MEDS ORDERED: DOCUSATE SODIUM 100MG CAPSULE PO SCH (09:00)
[2023-02-01] MEDS: DOCUSATE SOD LIQ 100MG/10ML UDC PO SCH ×2 (09:00→21:28)
[2023-02-01] MEDS ORDERED: BISACODYL 10MG SUPP PR PRN (09:05)
[2023-02-01] MEDS ORDERED: MOM 30ML SUSPENSION UDC PO ONE (09:30)
[2023-02-01] MEDS: SENNA 8.6 MG TAB (SENOKOT) PO SCH ×2 (09:39→21:29)
[2023-02-01 14:00] VITALS: BP 161/90; TEMP 97.5; O2SAT 98
[2023-02-01 20:00] VITALS: BP 140/77; TEMP 97.8; O2SAT 97
[2023-02-01] MEDS: TAMSULOSIN 0.4 MG CAP PO SCH (21:28)
[2023-02-01] MEDS: LEVEMIR (INSULIN DETEMIR) 1 UNITS/0.01ML SC SCH (21:28)
[2023-02-02] MEDS: LIDOCAINE 2% 5ML JELLY UROJET TOP PRN ×2 (05:44→21:58)
[2023-02-02 06:00] VITALS: BP 134/87; TEMP 97.5; O2SAT 98
[2023-02-02] MEDS: LACTOBACILLUS ACIDOPHILUS CAP (BACID) PO SCH (08:33)
[2023-02-02] MEDS: ASPIRIN 81MG ENTERIC TABLET PO SCH (08:33)
[2023-02-02] MEDS: SITagliptin 50 MG TAB (JANUVIA) PO SCH (08:33)
[2023-02-02] MEDS: CLOPIDOGREL 75 MG TAB PO SCH (08:33)
[2023-02-02] MEDS: PANTOPRAZOLE 40MG TAB (PROTONIX) PO SCH (08:33)
[2023-02-02] MEDS: MAGNESIUM OXIDE 400MG TAB (MAG-OX) PO SCH ×3 (08:33→21:34)
[2023-02-02] MEDS: ATORVASTATIN 20 MG TAB PO SCH (08:33)
[2023-02-02] MEDS: DOCUSATE SOD LIQ 100MG/10ML UDC PO SCH ×2 (08:34→21:00)
[2023-02-02] MEDS: SENNA 8.6 MG TAB (SENOKOT) PO SCH ×2 (08:34→21:00)
[2023-02-02] MEDS: BETHANECHOL 10 MG TAB PO SCH ×3 (08:34→21:34)
[2023-02-02] MEDS: PIOGLITAZONE 30 MG PO SCH (08:35)
[2023-02-02] MEDS: INSULIN LISPRO (NovoLOG) PER UNIT SC SCH ×4 (08:35→21:36)
[2023-02-02 14:00] VITALS: BP 135/91; TEMP 98.4; O2SAT 97
[2023-02-02 20:00] VITALS: BP 138/90; TEMP 98.1; O2SAT 98
[2023-02-02] MEDS: TAMSULOSIN 0.4 MG CAP PO SCH (21:34)
[2023-02-02] MEDS: LEVEMIR (INSULIN DETEMIR) 1 UNITS/0.01ML SC SCH (21:36)
[2023-02-02] MEDS: ACETAMINOPHEN TAB 650MG DOSE (2X325MG) PO PRN (22:28)
[2023-02-03 06:00] VITALS: BP 120/63; TEMP 98; O2SAT 99
[2023-02-03] MEDS: ATORVASTATIN 20 MG TAB PO SCH (08:33)
[2023-02-03] MEDS: LACTOBACILLUS ACIDOPHILUS CAP (BACID) PO SCH (08:33)
[2023-02-03] MEDS: ASPIRIN 81MG ENTERIC TABLET PO SCH (08:34)
[2023-02-03] MEDS: SENNA 8.6 MG TAB (SENOKOT) PO SCH ×2 (08:37→21:00)
[2023-02-03] MEDS: BETHANECHOL 10 MG TAB PO SCH (08:37)
[2023-02-03] MEDS: DOCUSATE SOD LIQ 100MG/10ML UDC PO SCH ×2 (08:39→19:57)
[2023-02-03] MEDS: CLOPIDOGREL 75 MG TAB PO SCH (08:39)
[2023-02-03] MEDS: INSULIN LISPRO (NovoLOG) PER UNIT SC SCH ×4 (08:39→20:29)
[2023-02-03] MEDS: PANTOPRAZOLE 40MG TAB (PROTONIX) PO SCH (08:39)
[2023-02-03] MEDS: SITagliptin 50 MG TAB (JANUVIA) PO SCH (08:39)
[2023-02-03] MEDS: PIOGLITAZONE 30 MG PO SCH (08:40)
[2023-02-03] MEDS: MAGNESIUM OXIDE 400MG TAB (MAG-OX) PO SCH ×3 (08:40→20:28)
[2023-02-03] MEDS: ACETAMINOPHEN TAB 650MG DOSE (2X325MG) PO PRN (10:46)
[2023-02-03 14:00] VITALS: BP 137/79; TEMP 98.1; O2SAT 99
[2023-02-03] MEDS: LIDOCAINE 2% 5ML JELLY UROJET TOP PRN (17:48)
[2023-02-03 19:50] VITALS: BP 138/89; TEMP 98.9; O2SAT 99
[2023-02-03] MEDS: RAMELTEON 8 MG TAB (ROZEREM) PO PRN (20:28)
[2023-02-03] MEDS ORDERED: LEVEMIR (INSULIN DETEMIR) 1 UNITS/0.01ML SC SCH (21:00)
[2023-02-04 05:22] VITALS: BP 112/65; TEMP 98.2; O2SAT 98
[2023-02-04] MEDS: INSULIN LISPRO (NovoLOG) PER UNIT SC SCH ×2 (08:30→12:13)
[2023-02-04] MEDS: PIOGLITAZONE 30 MG PO SCH (08:30)
[2023-02-04] MEDS: MAGNESIUM OXIDE 400MG TAB (MAG-OX) PO SCH (08:30)
[2023-02-04] MEDS: ATORVASTATIN 20 MG TAB PO SCH (08:30)
[2023-02-04] MEDS: ASPIRIN 81MG ENTERIC TABLET PO SCH (08:31)
[2023-02-04] MEDS: LACTOBACILLUS ACIDOPHILUS CAP (BACID) PO SCH (08:31)
[2023-02-04] MEDS: PANTOPRAZOLE 40MG TAB (PROTONIX) PO SCH (08:31)
[2023-02-04] MEDS: SITagliptin 50 MG TAB (JANUVIA) PO SCH (08:31)
[2023-02-04] MEDS: CLOPIDOGREL 75 MG TAB PO SCH (08:31)
[2023-02-04] MEDS: SENNA 8.6 MG TAB (SENOKOT) PO SCH (08:31)
[2023-02-04] MEDS: DOCUSATE SOD LIQ 100MG/10ML UDC PO SCH (08:32)
[2023-02-04] MEDS ORDERED: CLOP75TA2 PO (11:08)
[2023-02-04] MEDS ORDERED: MAGN400T2 PO (11:08)
[2023-02-04] MEDS ORDERED: SITA50TAB PO (11:08)
== END 2023-02-04 12:55 | disposition home health service (06) | DRG 57 ==
LOC: M PM&R 12:40
PROVIDERS: ADMIT Student in an Organized Health Care Education/Training Program; ATTEND Student in an Organized Health Care Education/Training Program
DX: I69.351 Hemiplegia and hemiparesis following cerebral infarction affecting right dominant side (principal); N18.4 Chronic kidney disease, stage 4 (severe); I50.32 Chronic diastolic (congestive) heart failure; I13.0 Hypertensive heart and chronic kidney disease with heart failure and stage 1 through stage 4 chronic kidney disease, or unspecified chronic kidney disease; E46 Unspecified protein-calorie malnutrition; E11.22 Type 2 diabetes mellitus with diabetic chronic kidney disease; K21.9 Gastro-esophageal reflux disease without esophagitis; E11.65 Type 2 diabetes mellitus with hyperglycemia; R13.12 Dysphagia, oropharyngeal phase; I69.322 Dysarthria following cerebral infarction; I69.391 Dysphagia following cerebral infarction; G25.0 Essential tremor; R33.9 Retention of urine, unspecified; F32.A Depression, unspecified; E78.5 Hyperlipidemia, unspecified; R00.8 Other abnormalities of heart beat; Z74.09 Other reduced mobility; Z74.1 Need for assistance with personal care; Z90.49 Acquired absence of other specified parts of digestive tract; Z79.82 Long term (current) use of aspirin; Z79.4 Long term (current) use of insulin; Z79.899 Other long term (current) drug therapy; Z88.0 Allergy status to penicillin

== ENCOUNTER 2023-02-09 15:15 | Emergency (ER) | payer MEDICARE, BC ==
[~2023-02-09] VITALS: Ht 180.3 cm; Wt 77.3 kg
[~2023-02-09 15:15] MED LIST changes: +SITA50TAB PO
[2023-02-09] MEDS ORDERED: ONDANSETRON 4MG 2ML VIAL IV ONE (15:55)
[2023-02-09] MEDS ORDERED: NS 1,000 ML IV SCH (15:55)
[2023-02-09] MEDS ORDERED: MORPHINE 4 MG/ML 1ML VIAL IV ONE ×2 (15:55→20:30)
[2023-02-09 15:59] LABS: BASO # 0.1 10^3/uL (0.0-0.2); BASO % 0.3 % (0.0-1.0); EOS % 0.2 % (0.0-3.0); HEMATOCRIT 38.3 % (42.0-52.0); HEMOGLOBIN 12.8 g/dl (13.5-17.5); LYMPH # 1.5 10^3/uL (1.5-5.0); LYMPH % 7.9 % (24.0-44.0); MEAN CORPUSCULAR HEMOGLOBIN 31.3 pg (27.0-33.0); MEAN CORPUSCULAR HGB CONC 33.4 g/dl (32.0-36.5); MEAN CORPUSCULAR VOLUME 93.6 fl (80.0-96.0); MONO # 0.9 10^3/uL (0.0-0.8); MONO % 4.7 % (2.0-8.0); NEUTROPHILS # 15.9 10^3/uL (1.5-8.5); NEUTROPHILS % 85.2 % (36.0-66.0); PLATELET COUNT, AUTOMATED 324 10^3/uL (150-450); RED BLOOD COUNT 4.09 10^6/uL (4.30-6.10); WHITE BLOOD COUNT 18.7 10^3/uL (4.0-10.0)
[2023-02-09 16:12] LABS: INR 1.03; PROTHROMBIN TIME 13.2 SECONDS (12.5-14.5)
[2023-02-09 16:13] LABS: PARTIAL THROMBOPLASTIN TIME 26.6 SECONDS (24.8-34.2)
[2023-02-09 16:18] LABS: LIPASE 42 U/L (12-53)
[2023-02-09 16:19] LABS: CK-MB VALUE MASS < 1.0 NG/ML (<3.6)
[2023-02-09] MEDS ORDERED: ERTAPENEM SODIUM 1 GM in NS MINI-BAG PLUS 50 ML IV ONE (16:20)
[2023-02-09 16:21] LABS: ALBUMIN 3.2 G/DL (3.2-5.2); ALKALINE PHOSPHATASE 215 U/L (46-116); ALT/SGPT 186 U/L (7.0-40); AST/SGOT 282 U/L (<34); BILIRUBIN,TOTAL 1.4 MG/DL (0.3-1.2); BLOOD UREA NITROGEN 41 MG/DL (9-23); CALCIUM LEVEL 9.3 MG/DL (8.3-10.6); CARBON DIOXIDE LEVEL 20 MMOL/L (20-31); CHLORIDE LEVEL 105 MMOL/L (98-107); CPK CREATINE PHOSPHOKINASE 32 U/L (46-171); CREATININE FOR GFR 3.06 MG/DL (0.70-1.30); GLOMERULAR FILTRATION RATE 21.3 (>42); GLUCOSE, FASTING 261 MG/DL (74-106); MB/CK RELATIVE INDEX 3.12 (< OR =4); POTASSIUM SERUM 4.2 MMOL/L (3.5-5.1); SODIUM LEVEL 139 MMOL/L (136-145); TOTAL PROTEIN 6.8 G/DL (5.7-8.2)
[2023-02-09 16:30] LABS: RSV AMPLIFICATION NEGATIVE (NEGATIVE)
[2023-02-09] MEDS ORDERED: MOXIFLOXACIN HCL 400 MG in IV 1 EA IV ONE (16:30)
[2023-02-09] MEDS ORDERED: NESI25TA PO (17:38)
[2023-02-09] MEDS: GASTROGRAFIN SOLUTION 30ML PO SCH ×2 (18:29→19:19)
[2023-02-09] MEDS ORDERED: metroNIDAZOLE 500 MG in IV 1 EA IV ONE (23:15)
[2023-02-09] MEDS ORDERED: SODIUM CHLORIDE 0.9% 1000ML IV STA (23:37)
[2023-02-09] MEDS ORDERED: DEXTROSE 50% 50ML SYRINGE IV PRN (23:40)
[2023-02-09] MEDS ORDERED: GLUCAGON INJ 1MG VIAL SC PRN (23:40)
[2023-02-09] MEDS ORDERED: GLUCOSE 4GM CHEW TABLET PO PRN (23:40)
[2023-02-09] MEDS ORDERED: LR 1,000 ML IV SCH (23:45)
[2023-02-10] MEDS ORDERED: INSULIN LISPRO (NovoLOG) PER UNIT SC SCH
[2023-02-10] MEDS ORDERED: HYDROMORPHONE HCL 0.5 MG/ 0.5 ML SYRINGE IV PRN
[2023-02-10 00:30] VITALS: BP 156/77
[2023-02-10 00:45] VITALS: TEMP 98.2
[2023-02-10 00:46] VITALS: O2SAT 95
[2023-02-10] MEDS ORDERED: AZTREONAM 2 GM in D5W MINI-BAG PLUS 50 ML IV SCH (01:00)
[2023-02-10] MEDS ORDERED: metroNIDAZOLE 500 MG in IV 1 EA IV SCH (08:00)
== END 2023-02-10 00:54 | disposition short-term general hospital (02) ==
LOC: M ED 15:15 → EDBD 15:15 → M ED 02-10 00:54
DX: A41.9 Sepsis, unspecified organism (principal); N17.9 Acute kidney failure, unspecified; K83.09 Other cholangitis; K80.80 Other cholelithiasis without obstruction; K59.00 Constipation, unspecified; R93.421 Abnormal radiologic findings on diagnostic imaging of right kidney; I12.9 Hypertensive chronic kidney disease with stage 1 through stage 4 chronic kidney disease, or unspecified chronic kidney disease; E11.9 Type 2 diabetes mellitus without complications; K21.9 Gastro-esophageal reflux disease without esophagitis; K57.92 Diverticulitis of intestine, part unspecified, without perforation or abscess without bleeding; E78.5 Hyperlipidemia, unspecified; Z79.4 Long term (current) use of insulin; Z79.82 Long term (current) use of aspirin; Z79.899 Other long term (current) drug therapy; Z88.0 Allergy status to penicillin
CPT/HCPCS: 36415; 51702; 70450; 74176; 80047; 80048; 80076; 81001; 82550; 82553; 83605; 83690; 84484; 85025; 85610; 85730; 86850; 86870; 86900; 86901; 87040; 87088; 87186; 87631; 93005; 93041; 96361; 96365; 96366; 96367; 96375; 96376; 99285; J1170; J1815; J1836; J2280; J2405; Q9963

== ENCOUNTER 2023-02-25 15:24 | Emergency (ER) | payer MEDICARE, BC ==
[~2023-02-25] VITALS: Ht 180.3 cm; Wt 67.7 kg
[~2023-02-25 15:24] MED LIST changes: +NESI25TA PO
[2023-02-25 15:26] VITALS: BP 128/84; TEMP 98.2; O2SAT 98
== END 2023-02-25 17:35 | disposition left against medical advice (07) ==
LOC: M ED 15:24
DX: Z53.21 Procedure and treatment not carried out due to patient leaving prior to being seen by health care provider (principal)

== ENCOUNTER → 2023-02-27 | Outpatient (REF) | payer MEDICARE, BC ==
[2023-02-27 13:52] LABS: BASO # 0.1 10^3/uL (0.0-0.2); BASO % 0.9 % (0.0-1.0); EOS # 0.2 10^3/uL (0.0-0.5); EOS % 2.2 % (0.0-3.0); HEMOGLOBIN 13.3 g/dl (13.5-17.5); LYMPH # 1.5 10^3/uL (1.5-5.0); LYMPH % 14.4 % (24.0-44.0); MEAN CORPUSCULAR HEMOGLOBIN 30.7 pg (27.0-33.0); MEAN CORPUSCULAR HGB CONC 32.4 g/dl (32.0-36.5); MEAN CORPUSCULAR VOLUME 94.7 fl (80.0-96.0); MONO # 0.7 10^3/uL (0.0-0.8); MONO % 6.3 % (2.0-8.0); NEUTROPHILS # 7.9 10^3/uL (1.5-8.5); NEUTROPHILS % 75.1 % (36.0-66.0); PLATELET COUNT, AUTOMATED 378 10^3/uL (150-450); RED BLOOD COUNT 4.33 10^6/uL (4.30-6.10); WHITE BLOOD COUNT 10.5 10^3/uL (4.0-10.0)
[2023-02-27 14:19] LABS: ALBUMIN 3.5 G/DL (3.2-5.2); BILIRUBIN,DIRECT 0.4 MG/DL (<0.4); BILIRUBIN,TOTAL 0.7 MG/DL (0.3-1.2); CHOLESTEROL RISK RATIO 4.85 (<5); CREATININE FOR GFR 2.65 MG/DL (0.70-1.30); GLOMERULAR FILTRATION RATE 25.1 (>42); HDL CHOLESTEROL 30.3 MG/DL (>40); LDL CHOLESTEROL 82.9 MG/DL (<100); NON-HDL-C 116.7 MG/DL; POTASSIUM SERUM 4.3 MMOL/L (3.5-5.1)
== END ==
LOC: M WUC 12:06
PROVIDERS: ATTEND Family Medicine
DX: I10 Essential (primary) hypertension (principal); E78.5 Hyperlipidemia, unspecified; E11.21 Type 2 diabetes mellitus with diabetic nephropathy

== ENCOUNTER → 2023-03-10 | Outpatient (REF) | payer MEDICARE, BC ==
[2023-03-10 19:06] LABS: HEMOGLOBIN A1c 7.9 % (4.0-6.0)
== END ==
LOC: M LAB REF 17:23
PROVIDERS: ATTEND Nurse Practitioner Family
DX: E11.65 Type 2 diabetes mellitus with hyperglycemia (principal)

== ENCOUNTER 2023-04-29 10:21 | Outpatient (RCR) | payer MEDICARE, BC | END 2023-05-04 | LOC: M ST 10:21 | PROVIDERS: ATTEND Family Medicine | DX: I69.328 Other speech and language deficits following cerebral infarction (principal) ==

== ENCOUNTER → 2023-05-09 | Outpatient (CLI) | payer MEDICARE, BC ==
[2023-05-09 11:15] LABS: LIPASE 66 U/L (12-53)
[2023-05-09 11:16] LABS: AMYLASE 67 U/L (30-118)
[2023-05-09 11:17] LABS: ALBUMIN 3.7 G/DL (3.2-5.2); ALKALINE PHOSPHATASE 79 U/L (46-116); ALT/SGPT 15 U/L (7.0-40); AST/SGOT < 8 U/L (<34); BILIRUBIN,TOTAL 0.4 MG/DL (0.3-1.2); BLOOD UREA NITROGEN 56 MG/DL (9-23); CALCIUM LEVEL 10.5 MG/DL (8.3-10.6); CARBON DIOXIDE LEVEL 26 MMOL/L (20-31); CHLORIDE LEVEL 100 MMOL/L (98-107); CREATININE FOR GFR 3.12 MG/DL (0.70-1.30); GLOMERULAR FILTRATION RATE 20.8 (>42); GLUCOSE, FASTING 262 MG/DL (74-106); POTASSIUM SERUM 3.9 MMOL/L (3.5-5.1); SODIUM LEVEL 136 MMOL/L (136-145); TOTAL PROTEIN 7.2 G/DL (5.7-8.2)
== END ==
LOC: M WUC 08:39
PROVIDERS: ATTEND Nurse Practitioner Family
DX: E11.65 Type 2 diabetes mellitus with hyperglycemia (principal)

== ENCOUNTER → 2023-05-16 | Outpatient (CLI) | payer OTHER, MEDICARE, BC | LOC: M RAD 09:02 | PROVIDERS: ATTEND Internal Medicine | DX: G46.3 Brain stem stroke syndrome (principal); K80.80 Other cholelithiasis without obstruction ==

== ENCOUNTER 2023-05-27 10:25 | Outpatient (RCR) | payer MEDICARE, BC | END 2023-06-04 | LOC: M ST 10:25 | PROVIDERS: ATTEND Family Medicine | DX: I69.328 Other speech and language deficits following cerebral infarction (principal) ==

== ENCOUNTER → 2023-06-11 | Outpatient (REF) | payer MEDICARE, BC | LOC: M LAB REF 17:49 | PROVIDERS: ATTEND Nurse Practitioner Family | DX: N39.0 Urinary tract infection, site not specified (principal) ==

== ENCOUNTER → 2023-06-24 | Outpatient (REF) | payer MEDICARE, BC ==
[~2023-06-24] MED LIST changes: -OXYB5TAB11 PO; +OXYB5TAB14 PO; -POTA20EL PO; +POTA20LI16 PO
[2023-06-24 18:37] LABS: HEMOGLOBIN A1c 8.1 % (4.0-6.0)
== END ==
LOC: M LABWUC 16:17
PROVIDERS: ATTEND Nurse Practitioner Family
DX: E11.65 Type 2 diabetes mellitus with hyperglycemia (principal)

== ENCOUNTER 2023-07-01 09:34 | Outpatient (RCR) | payer MEDICARE, BC | END 2023-07-03 | LOC: M ST 09:34 | PROVIDERS: ATTEND Family Medicine | DX: I69.320 Aphasia following cerebral infarction (principal) ==

== ENCOUNTER 2023-07-29 10:17 | Outpatient (RCR) | payer MEDICARE, BC | END 2023-08-03 | LOC: M ST 10:17 | PROVIDERS: ATTEND Family Medicine | DX: I63.9 Cerebral infarction, unspecified (principal); I69.320 Aphasia following cerebral infarction ==

== ENCOUNTER 2023-08-26 09:38 | Outpatient (RCR) | payer MEDICARE, BC | END 2023-09-02 | LOC: M ST 09:38 | PROVIDERS: ATTEND Family Medicine | DX: I69.320 Aphasia following cerebral infarction (principal) ==

== ENCOUNTER 2023-10-01 11:06 | Outpatient (RCR) | payer MEDICARE, BC | END 2023-10-03 | LOC: M ST 11:06 | PROVIDERS: ATTEND Family Medicine | DX: I69.320 Aphasia following cerebral infarction (principal) ==

== ENCOUNTER → 2023-10-03 | Outpatient (CLI) | payer MEDICARE, BC | LOC: M RAD 16:01 | PROVIDERS: ATTEND Orthopaedic Surgery | DX: M25.561 Pain in right knee (principal) ==

== ENCOUNTER → 2023-10-06 | Outpatient (CLI) | payer MEDICARE, BC ==
[2023-10-06 16:47] LABS: HEMATOCRIT 41.3 % (42.0-52.0); HEMOGLOBIN 13.4 g/dl (13.5-17.5); MEAN CORPUSCULAR HEMOGLOBIN 31.2 pg (27.0-33.0); MEAN CORPUSCULAR HGB CONC 32.4 g/dl (32.0-36.5); MEAN CORPUSCULAR VOLUME 96.3 fl (80.0-96.0); PLATELET COUNT, AUTOMATED 222 10^3/uL (150-450); RED BLOOD COUNT 4.29 10^6/uL (4.30-6.10); WHITE BLOOD COUNT 8.5 10^3/uL (4.0-10.0)
[2023-10-06 16:52] LABS: CALCIUM LEVEL 9.8 MG/DL (8.3-10.6); CREATININE FOR GFR 3.04 MG/DL (0.70-1.30); GLOMERULAR FILTRATION RATE 21.4 (>42); POTASSIUM SERUM 4.1 MMOL/L (3.5-5.1)
== END ==
LOC: M WUC 11:10
PROVIDERS: ATTEND Physician Assistant
DX: I50.32 Chronic diastolic (congestive) heart failure (principal)

== ENCOUNTER → 2023-11-13 | Outpatient (REF) | payer MEDICARE, BC | LOC: M SFHCADAM 17:08 → M SMT 17:08 | PROVIDERS: ATTEND Urology | DX: R33.9 Retention of urine, unspecified (principal) ==

== ENCOUNTER → 2024-12-24 | Outpatient (REF) ==
[~2024-12-24] MED LIST changes: -FLOM0.4C39 PO; +TAMS-18 PO
== END ==
LOC: M PLAIMG 11:03
PROVIDERS: ATTEND Internal Medicine
DX: R06.02 Shortness of breath (principal)

== ENCOUNTER → 2025-04-15 | Outpatient (CLI) | payer MEDICARE, BC ==
[2025-04-15 12:17] LABS: CHOLESTEROL LEVEL 128.0 MG/DL (<200); CHOLESTEROL RISK RATIO 2.92 (<5); LDL CHOLESTEROL 67.4 MG/DL (<100); NON-HDL-C 84.2 MG/DL; TRIGLYCERIDES LEVEL 84.0 MG/DL (<150)
== END ==
LOC: M WUC 08:34
PROVIDERS: ATTEND Family Medicine
DX: E11.22 Type 2 diabetes mellitus with diabetic chronic kidney disease (principal); N18.4 Chronic kidney disease, stage 4 (severe); E78.5 Hyperlipidemia, unspecified